=== PATIENT | female | born 1960 | race Two or more races ===

== ENCOUNTER 2017-07-25 11:26 | Outpatient (CLI) | payer OTHER | END 2017-07-25 12:28 | disposition home or self-care (01) | LOC: MAMO-SONO 11:26 | DX: N95.2 Postmenopausal atrophic vaginitis (principal); D25.1 Intramural leiomyoma of uterus; N64.4 Mastodynia; R10.2 Pelvic and perineal pain; Z80.0 Family history of malignant neoplasm of digestive organs; Z80.3 Family history of malignant neoplasm of breast; Z12.31 Encounter for screening mammogram for malignant neoplasm of breast ==

== ENCOUNTER 2020-09-06 12:10 | Outpatient (CLI) | payer OTHER | END 2020-09-06 12:24 | disposition home or self-care (01) | LOC: SONOGRAMA 12:10 → MAMO-SONO 15:15 | PROVIDERS: ATTEND Obstetrics & Gynecology | DX: R31.21 Asymptomatic microscopic hematuria (principal) ==

== ENCOUNTER 2020-09-06 12:57 | Outpatient (CLI) | payer OTHER | END 2020-09-06 12:59 | disposition home or self-care (01) | LOC: LAB 12:57 | PROVIDERS: ATTEND Obstetrics & Gynecology | DX: Z03.818 Encounter for observation for suspected exposure to other biological agents ruled out (principal); Z20.828 Contact with and (suspected) exposure to other viral communicable diseases ==

== ENCOUNTER 2020-09-07 11:30 | Inpatient (IN) | payer OTHER ==
[~2020-09-07] VITALS: Ht 160 cm; Wt 54.9 kg
[2020-09-15] MEDS ORDERED: COLACE100 MG PO (12:05)
[2020-09-15] MEDS ORDERED: ULTRACET PO (12:06)
== END 2020-09-15 12:47 | disposition home or self-care (01) | DRG 743 ==
LOC: OB/GYN 09-14 05:40 → O/R 09-14 05:40 → SURH 09-14 07:00 → O/R 09-14 11:58 → OB/GYN 09-14 13:31
PROVIDERS: ADMIT Obstetrics & Gynecology; ATTEND Obstetrics & Gynecology
PROC: 0UT9FZZ Resection of Uterus, Via Natural or Artificial Opening With Percutaneous Endoscopic Assistance (ICD-10-PCS; principal; 2020-09-14 07:00)
PROC: 0UB78ZZ Excision of Bilateral Fallopian Tubes, Via Natural or Artificial Opening Endoscopic (ICD-10-PCS; 2020-09-14 07:00)
DX: D25.1 Intramural leiomyoma of uterus (principal); N80.0 Endometriosis of uterus; N72 Inflammatory disease of cervix uteri; N94.12 Deep dyspareunia

== ENCOUNTER 2020-09-12 07:59 | Outpatient (CLI) | payer OTHER | END 2020-09-12 08:12 | disposition home or self-care (01) | LOC: RAD 07:59 | PROVIDERS: ATTEND Urology | DX: R31.29 Other microscopic hematuria (principal) ==

== ENCOUNTER 2024-12-23 09:50 | Outpatient (CLI) | payer OTHER ==
[~2024-12-23 09:50] MED LIST: COLACE100 MG PO; ULTRACET PO
== END 2024-12-23 09:54 | disposition home or self-care (01) ==
LOC: SONOGRAMA 09:50
PROVIDERS: ATTEND Pathology Anatomic Pathology & Clinical Pathology
DX: D34 Benign neoplasm of thyroid gland (principal); E07.89 Other specified disorders of thyroid; E04.2 Nontoxic multinodular goiter